=== PATIENT | female | born 1975 | race Caucasian/White ===

== ENCOUNTER 2017-01-24 08:43 | Day surgery (SDC) | payer OTHER ==
[~2017-01-24 08:43] MED LIST: Acetaminophen TAB* 325 MG PO ONE; Buffered Lidocaine 0.9% SYRIN* 5 ML/SYR SYRINGE INTRADERM ONE; Metoclopramide IV* 5 MG/ML 2 ML VIAL IV SLOW PU ONE; Ondansetron INJ* 2 MG/ML VIAL IV ONE
[2017-01-24] MEDS ORDERED: Buffered Lidocaine 0.9% SYRIN* 5 ML/SYR SYRINGE ONE (08:46)
[2017-01-24] MEDS ORDERED: Acetaminophen TAB* 325 MG ONE (08:46)
[2017-01-24] MEDS ORDERED: Metoclopramide IV* 5 MG/ML 2 ML VIAL ONE (08:46)
[2017-01-24] MEDS ORDERED: Ondansetron INJ* 2 MG/ML VIAL ONE (08:46)
[2017-01-24 09:13] LABS: Hematocrit 39 % (35-47); Hemoglobin 12.9 g/dl (12.0-16.0); Mean Corpuscular HGB Conc 33 g/dl (31-36); Mean Corpuscular Hemoglobin 29 pg (27-31); Mean Corpuscular Volume 87 fL (80-97); Mean Platelet Volume 9 um3 (7.4-10.4); Red Blood Count 4.46 10^6/ul (4.0-5.4); Red Cell Distribution Width 13 % (10.5-15); White Blood Count 6.7 10^3/ul (3.5-10.8)
[2017-01-24] MEDS ORDERED: Lidocaine 2% PF * 5 ML VIAL ONE (09:46)
[2017-01-24] MEDS ORDERED: Ketorolac INJ* 30 MG/ML 1 ML VIAL ONE (09:46)
[2017-01-24] MEDS ORDERED: Propofol* 10 MG/ML 20 ML BTL IV PUSH ONE (09:46)
[2017-01-24] MEDS ORDERED: Dexamethasone IV* 4 MG/ML 1 ML (4 MG) ONE (09:46)
[2017-01-24] MEDS ORDERED: Phenylephrine IV* 40 MCG/ML 10 ML SYRINGE ONE (09:46)
[2017-01-24] MEDS ORDERED: Midazolam* 1 MG/ML 2 ML VIAL (2 MG) ONE (09:46)
[2017-01-24] MEDS ORDERED: fentaNYL* 50 MCG/ML 2 ML VIAL (100 MCG VIAL) ONE (09:47)
[2017-01-24] MEDS ORDERED: HYDROmorphone* 1 MG/ML 1 ML SYR IV PRN (10:32)
[2017-01-24] MEDS ORDERED: HYDROcodone/ACETAMIN 5-325 MG* 1 TAB PO PRN (10:32)
[2017-01-24] MEDS ORDERED: fentaNYL* 50 MCG/ML 2 ML VIAL (100 MCG VIAL) IV PRN (10:32)
[2017-01-24] MEDS ORDERED: PROCHLORPERAZINE INJ 5 MG/ML 2 ML VIAL IV PRN (10:32)
[2017-01-24] MEDS ORDERED: Silver Nitrate/Potassium Nitr* 1 EA STICK ONE (10:35)
[2017-01-24 11:44] VITALS: BP 107/67
--- NOTE | 2017-01-27 03:44 | OP ---
DATE OF OPERATION: 01/24/17 [facility] DATE OF : 71 SURGEON: Donna Jennings MD. ANESTHESIOLOGIST: Dr. Chapin. ANESTHESIA: General. PRE-OP DIAGNOSES: Postcoital bleeding and spotting and endometrial polyp. POST-OP DIAGNOSES: Postcoital bleeding and spotting and endometrial polyp. OPERATIVE PROCEDURE: Hysteroscopy, dilation and curettage, and polypectomy with MyoSure. ESTIMATED BLOOD LOSS: Minimal, less than 10 cc. URINE OUTPUT: 150 cc. IV FLUIDS: 700 cc lactated Ringers. MATERIALS TO LAB: Endometrial curettings and polyp. INDICATION: The patient is a 41-year-old 4, para 1 who presented with report of fairly long history of postcoital bleeding and irregular mid-cycle spotting. Ultrasound was normal other than findings of an apparent 8 mm polyp inside the uterine cavity. She was extensively counseled and consent was signed for hysteroscopy, D and C, and polypectomy. FINDINGS: Normal appearing uterine cavity other than an endometrial polyp and another small area that appeared to be polypoid. These were removed without difficulty. COMPLICATIONS: None. DESCRIPTION OF PROCEDURE: The risks, benefits, and alternatives were described to the patient, and informed consent was obtained. The patient was taken to the operating room with IV running where general anesthesia was induced and found to be adequate. The patient was prepped and draped in the normal sterile fashion in the high lithotomy position and Wander stirrups. A time-out was performed. The bladder was emptied. A bivalved speculum was placed in the vagina and a single- tooth tenaculum was placed on the anterior cervix. The cervix was then gently dilated using Hanks dilators to a size 27. At that time, a MyoSure hysteroscope was advanced through the cervix and into the uterine cavity. The findings are noted above. A MyoSure Lite device was prepared and placed through the MyoSure scope. The MyoSure was used to easily resect both areas of endometrial polyp. At that time , the scope was removed. A curettage of the endometrial cavity was then performed using a medium banjo curette. The tenaculum was then removed from the cervix and there was good hemostasis after holding pressure and using some silver nitrate. The speculum was removed and the patient was returned to the supine position. The patient tolerated the procedure well. Sponge, lap, and needle counts were correct x2. [id number]/[facility] #: [id number] [facility]
== END 2017-01-24 12:06 | disposition home or self-care (01) ==
LOC: OR 08:43
PROVIDERS: ATTEND Obstetrics & Gynecology
DX: N84.0 Polyp of corpus uteri (principal); N93.0 Postcoital and contact bleeding; K51.90 Ulcerative colitis, unspecified, without complications; J30.2 Other seasonal allergic rhinitis; Z88.8 Allergy status to other drugs, medicaments and biological substances
CPT/HCPCS: 36415; 81025; 85027; 88305; A9270-GY; J1100; J1885; J2250; J2405; J2704; J2765; J3010